=== PATIENT | male | born 1935 | race Caucasian/White ===

== ENCOUNTER 2018-08-08 12:38 | Emergency (ER) | payer OTHER, MEDICARE, BC ==
[2018-08-08] MEDS ORDERED: DIPH,PERTUS(ACELL)TETVAC-LF 0.5 ML VIAL IM ONE (12:48)
[2018-08-08] MEDS ORDERED: SODIUM CHLORIDE 0.9% 1,000 ML IV STA (12:48)
[2018-08-08 12:55] VITALS: BP 168/86; PULSE 71; RESP 18; TEMP 97
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
[2018-08-08 13:01] LABS: Glucose,Whole Blood 156 mg/dL (75-99)
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
[2018-08-08 13:16] LABS: Basophils % (A) 0 %; Eosinophils # (A) 0.2 k/uL (0-0.7); Eosinophils % (A) 2 %; HCT 45.3 % (39.0-53.0); HGB 15.3 gm/dL (13.0-17.5); Lymphocytes # (A) 1.8 k/uL (1.0-4.8); Lymphocytes % (A) 21 %; MCH 32.1 pg (25.0-35.0); MCHC 33.9 g/dL (31.0-37.0); MCV 94.6 fL (80.0-100.0); Mean Platelet Volume 7.8; Monocytes # (A) 0.4 k/uL (0-1.0); Monocytes % (A) 5 %; Neutrophils % (A) 70 %; Platelet Count 251 k/uL (150-450); RBC 4.79 m/uL (4.30-5.90); RDW 13.1 % (11.5-15.5); WBC 8.6 k/uL (3.8-10.6)
[2018-08-08 13:29] LABS: ALT 35 U/L (21-72); AST 29 U/L (17-59); Albumin 4.4 g/dL (3.5-5.0); Alcohol <10 mg/dL; Alkaline Phosphatase 82 U/L (38-126); Amylase 55 U/L (30-110); Anion Gap 9 mmol/L; Blood Urea Nitrogen 13 mg/dL (9-20); Calcium 9.7 mg/dL (8.4-10.2); Carbon Dioxide 26 mmol/L (22-30); Chloride 104 mmol/L (98-107); Glucose 158 mg/dL (74-99); Lipase 101 U/L (23-300); Potassium 4.5 mmol/L (3.5-5.1); Sodium 139 mmol/L (137-145); Total Bilirubin 0.8 mg/dL (0.2-1.3); Total Protein 7.1 g/dL (6.3-8.2)
[2018-08-08 13:42] LABS: Creatine Kinase 222 U/L (55-170)
[2018-08-08 13:55] LABS: Creatine Kinase MB 2.5 ng/mL (0.0-2.4); Troponin I <0.012 ng/mL (0.000-0.034)
[2018-08-08 13:59] LABS: Prothrombin Time 10.8 sec (9.0-12.0)
[2018-08-08 14:02] LABS: Partial Thromboplastin Time 21.2 sec (22.0-30.0)
[2018-08-08] MEDS ORDERED: LIDOCAINE 1% INJ 10MG/ML (20 ML MDV) SQ ONE (14:07)
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
[2018-08-08] MEDS ORDERED: GELATIN SPONGE,ABSORB (LARGE) 1 EACH SPONGE TOPICAL STA (15:00)
== END 2018-08-08 15:34 | disposition home or self-care (01) ==
LOC: EC 12:38
DX: S61.411A Laceration without foreign body of right hand, initial encounter (principal); S00.01XA Abrasion of scalp, initial encounter; I10 Essential (primary) hypertension; Z23 Encounter for immunization; Z86.73 Personal history of transient ischemic attack (TIA), and cerebral infarction without residual deficits; Z79.899 Other long term (current) drug therapy; Z88.0 Allergy status to penicillin; V03.99XA Pedestrian with other conveyance injured in collision with car, pick-up truck or van, unspecified whether traffic or nontraffic accident, initial encounter; Y92.410 Unspecified street and highway as the place of occurrence of the external cause
CPT/HCPCS: 36415; 86900; 86901; 80053; 82150; 82550; 82553; 83605; 83690; 84484; 85025; 85610; 85730; 86850; 80320; 72170; 73130; 71045; 72125; 70450; 71260; 74177; 90715; 99284; 12005; 90471; 96365; 96361; J0690; J2001; Q9967

== ENCOUNTER 2019-01-22 13:32 | Emergency (ER) | payer MEDICARE, BC ==
[2019-01-22 13:46] VITALS: RESP 18; TEMP 97.5
[2019-01-22] MEDS ORDERED: LIDOCAINE 1% INJ 10MG/ML (20 ML MDV) SQ STA (14:39)
--- NOTE | 2019-01-22 14:42 | ED ---
General Adult HPI - General Chief complaint: Fall Stated complaint: Fall Time Seen by Provider: 01/22/19 14:00 Source: patient, RN notes reviewed, old records reviewed Mode of arrival: ambulatory Limitations: no limitations - History of Present Illness Initial comments: 83-year-old male patient presents to ED for chief complaint of fall from ladder. Patient was reportedly on a 14 foot ladder when he was spraying a hand with WD- 40. Patient reports that the ladder slipped. Patient reports that the latter legs started to slide, he had a somewhat control descent as the latter was pressing against the wall as he slid down. Patient reports that he hit his jaw. Patient denies any loss consciousness or use of blood thinners. Patient chief complaint is pain in jaw, laceration to right ear, laceration to right wrist. Patient denies any difficulty breathing. Denies any chest pain or abdominal pain. Denies all other complaints. Patient tetanus is up-to-date. Systemic: Pt denies fatigue, fever/chills, rash. Pt denies weakness, night sweats, weight loss. Neuro: Pt denies headache, visual disturbances, syncope or pre-syncope. HEENT: Pt denies ocular discharge or irritation, otalgia, rhinorrhea, pharyngitis or notable lymphadenopathy. Cardiopulmonary: Pt denies chest pain, SOB, heart palpitations, dyspnea on exertion. Abdominal/GI: Pt denies abdominal pain, n/v/d. : Pt denies dysuria, burning w/ urination, frequency/urgency. Denies new onset urinary or bowel incontinence. MSK: Pt denies myalgia, loss of strength or function in extremities. Neuro: Pt denies new onset weakness, paresthesias. - Related Data Home Medications Medication Instructions Recorded Confirmed Unknown Blood Pressure Med 1 tab PO HS 08/08/18 08/08/18 Previous Rx's Medication Instructions Recorded Cephalexin [Keflex] 500 mg PO TID #21 cap 08/08/18 Cephalexin [Keflex] 500 mg PO Q6HR 3 Days #12 cap 01/22/19 Allergies Allergy/AdvReac Type Severity Reaction Status Date / Time Penicillins Allergy Swelling Verified 01/22/19 13:46 Review of Systems ROS Statement: Those systems with pertinent positive or pertinent negative responses have been documented in the HPI. ROS Other: All systems not noted in ROS Statement are negative. Past Medical History Past Medical History: CVA/TIA, Hypertension Additional Past Medical History / Comment(s): kidney stones gall bladder History of Any Multi-Drug Resistant Organisms: None Reported Past Surgical History: Ear Surgery Additional Past Surgical History / Comment(s): nasel surg/plastic eye cataracts Past Psychological History: No Psychological Hx Reported Smoking Status: Never smoker Past Alcohol Use History: None Reported Past Drug Use History: None Reported General Exam - General Exam Comments Initial Comments: Constitutional: NAD, AOX3, Pt has pleasant affect. HEENT: NC/AT, trachea midline, neck supple, no lymphadenopathy. Posterior pharynx non erythematous, without exudates. External ears appear normal, without discharge. Mucous membranes moist. Eyes PERRLA, EOM intact. There is no scleral icterus. No pallor noted. Cardiopulmonary: RRR, no murmurs, rubs or gallops, no JVD noted. Lungs CTAB in anterior and posterior rosales. No peripheral edema. Abdominal exam: Abdomen soft and non-distended. Abdomen non-tender to palpation in all 4 quadrants. Bowel sounds active in LLQ. No hepatosplenomegaly. No ecchymosis Neuro: CN II-XII intact. No nuchal rigidity. No raccon eyes, no ladd sign, no hemotympanum. No cervical spinal tenderness. MSK: Mild soft tissue swelling noted to right jaw. Both range of motion of jaw. 7 cm laceration to right medial wrist region there is irrigated approximate 9 simple interrupted sutures. Skin abrasion to the anterior aspect of right lower extremity vigorously irrigated. No posterior calf tenderness bilaterally, homans sign negative bilaterally. Posterior tibialis and radial pulse +2 bilaterally. Sensation intact in upper and lower extremities. Full active ROM in upper and lower extremities, 5/5 stregnth. Limitations: no limitations Course Vital Signs 01/22/19 01/22/19 01/22/19 13:40 17:00 17:30 Temperature 97.5 F L Pulse Rate 70 Respiratory 18 Rate Blood Pressure 190/96 203/111 217/108 O2 Sat by Pulse 96 Oximetry 01/22/19 17:53 Temperature Pulse Rate Respiratory Rate Blood Pressure 189/94 O2 Sat by Pulse Oximetry Procedures - Laceration Laceration #1 Consent Obtained: verbal consent Indication: laceration Site: other (right wrist medial) Size (cm): 7 Description: linear Anesthetic Used: lidocaine 1% Anesthesia Technique: local infiltration Amount (mls): 6 Pre-repair: wound explored, irrigated extensively, deep structures intact Type of Sutures: nylon Size of Sutures: 5-0 Number of Sutures: 9 Technique: simple, interrupted Patient Tolerated Procedure: well, no complications Medical Decision Making - Medical Decision Making 83-year-old male patient presents to ED for chief complaint of fall from ladder. Patient was reportedly on a 14 foot ladder when he was spraying a hand with WD- 40. Patient reports that the ladder slipped. Patient reports that the latter legs started to slide, he had a somewhat control descent as the latter was pressing against the wall as he slid down. Patient reports that he hit his jaw. Patient denies any loss consciousness or use of blood thinners. Patient chief complaint is pain in jaw, laceration to right ear, laceration to right wrist. Patient denies any difficulty breathing. Denies any chest pain or abdominal pain. Denies all other complaints. Patient tetanus is up-to-date. Patient vital signs displayed hypertension. His exam displayed a mild amount of soft tissue swelling on the right. Dry region. Full active range of motion of jaw. Laceration to right medial wrist region. Skin abrasions to anterior aspect of right lower extremity. Small abrasion to right year. No ecchymoses, no abdominal tenderness. Neurologic exam within normal limits. Cardiac pulmonary exam within normal limits. Patient laceration vigorously irrigated, approximated with 9 simple interrupted sutures. Patient administered 2 g Kefzol. We'll discharge her 3 days of prophylactic Keflex. Plain films of pelvis, wrist, chest did not display acute process. The facial bones displayed no acute facial fracture. Postsurgical changes. Chronic mucoperiosteal disease involving the ethmoid and left maxillary sinus. CT brain and C-spine displayed no acute intracranial process. Asymmetric soft tissue in the left anterior tonsil, direct relation recommended. Patient will be recommended to follow with a urinalysis and throat doctor on outpatient basis. No gross abnormality noted on exam. Patient to monitor for signs and symptoms of infection. Will follow up with primary care provider. Case discussed with Dr. Arias. Repeat vital signs patient was hypertensive. Patient was administered Vasotec. Patient is asymptomatic. Neurologic exam within normal limits. Patient was discharged, will monitor blood pressure at home. Will return to ER if condition worsens. Disposition Clinical Impression: Fall, Laceration Disposition: HOME SELF-CARE Condition: Stable Instructions (If sedation given, give patient instructions): Laceration (ED) Additional Instructions: Patient to adhere to previously discussed treatment plan and will take medication(s) as directed. Patient to follow up with PCP in 1-2 days. Patient to return to ED if symptoms do not improve. Please return for suture removal: Hand: 7-10 days Face: 5 days Chest/abdomen: 12-14 days Extremities: 7-10 days Scalp: 7 days Eyebrow: 5-7 days Foot/sole: 12-14 days Please monitor for signs and symptoms of infection including: redness, warmth, drainage, discharge. Please return to ED if these signs or symptoms occur, new signs or symptoms develop or if condition worsens in anyway. Follow-up with ENT for follow-up of tonsil evaluation. Prescriptions: Cephalexin [Keflex] 500 mg PO Q6HR 3 Days #12 cap Is patient prescribed a controlled substance at d/c from ED?: No Referrals: Adeola Solo MD [Primary Care Provider] - 1-2 days Torito Pugh DO [Doctor of Osteopathic Medicine] - 1-2 days
--- NOTE | 2019-01-22 15:31 | CT ---
EXAMINATION TYPE: CT facial bones wo con DATE OF EXAM: 01/22/2019 COMPARISON: None. HISTORY: Fall from aprox 14 feet from a ladder. CT DLP: 1238.5 mGycm Automated exposure control for dose reduction was used. TECHNIQUE: CT scan of the sinuses is performed without contrast, axial images are obtained, coronal r eformatted images are also reviewed. FINDINGS: There are mild atrophic changes within the brain. This been a previous Kasper-Russell procedure on the right. There has been resection of the nasal conch ae on the right. There is mild mucoperiosteal thickening involving the ethmoid air cells and left max illary sinus. The mastoid air cells appear clear. The zygomatic arches are intact. The pterygoid plates are intact. The morton of the orbits and maxilla ry sinuses are intact. No mandibular fracture is seen. IMPRESSION: 1. NO ACUTE FACIAL FRACTURE. 2. POSTSURGICAL CHANGE. 3. 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
--- NOTE | 2019-01-22 15:35 | CT ---
EXAMINATION TYPE: CT brain edil driscoll DATE OF EXAM: 01/22/2019 COMPARISON: HISTORY: Fall from aprox 14 feet from a ladder. CT DLP: 1238.5 mGycm Automated exposure control for dose reduction was used. TECHNIQUE: CT scan of the head and cervical spine are performed without contrast. Findings: CT brain: No acute intracranial hemorrhage, midline shift, or mass effect. No abnormal extra-axial fluid collec tions. Frontal predominant cerebral atrophy with nonspecific periventricular and subcortical white ma tter hypoattenuation, likely related to chronic microangiopathy. The ventricles are commensurate with the degree of sulcal prominence, more pronounced at the frontal horns. No findings of hydrocephalus. No calvarial fracture. Left frontal calvarial irregularity of the outer table with deficient overlyin g scalp soft tissues. Postsurgical changes of right mastoidectomy. Maxillofacial structures are repor britney separately. CT cervical spine: The cervical spine is imaged through the T3-T4 disc space. Straightening of the no rmal cervical lordosis. The vertebral bodies and facets are anatomically aligned. Vertebral body heig hts are maintained. No fracture. 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 Combination of uncovertebr al and facet spurs contribute to severe degrees of neural foraminal osseous impingement, severe at C3 -C4 bilaterally with lesser degrees present elsewhere. Bridging osteophytes present throughout the ce rvical and visualized upper thoracic spine, compatible with diffuse idiopathic skeletal hyperostosis. Visualized soft tissues demonstrate no prevertebral edema. Carotid and vertebral artery calcification s. Asymmetric soft tissues in the region of the left pontine tonsil (series 304 image 34). IMPRESSION: 1. No acute intracranial abnormality. 2. Senescent changes including cerebral volume loss (frontal predominant) and sequela of chronic micr oangiopathy. 3. No cervical spine fracture or dislocation. If there is persistent clinical concern for the presenc e of such, MRI should be considered. 4. Asymmetric soft tissue in the region of the left palatine tonsil. Direct visualization recommended . 5. Maxillofacial findings reported separately. Findings and recommendations were called to Jose Silva by Bekah Charles at 3:30 PM on 01/23/20 19.
--- NOTE | 2019-01-22 15:41 | XR ---
EXAMINATION TYPE: XR chest 2V DATE OF EXAM: 01/22/2019 HISTORY: fall ladder . REFERENCE: Previous study dated 08/08/2018. FINDINGS: There are moderate hypertrophic changes in the left AC joint. The lungs are clear. Pleural spaces are clear. The heart is not enlarged. IMPRESSION: NO ACUTE INTRATHORACIC DISEASE.
--- NOTE | 2019-01-22 15:42 | XR ---
EXAMINATION TYPE: XR wrist complete RT , 4 VIEWS DATE OF EXAM ORDERED: 01/22/2019 HISTORY: fall ladder . COMPARISON: Previous study dated 08/08/2018. FINDINGS: No fracture or dislocation is seen. There are severe degenerative changes within the finge rs, incompletely visualized. There is soft tissue swelling about the wrist. There is vascular calcifi cation present. IMPRESSION: NO DEFINITE ACUTE OSSEOUS ABNORMALITY.
--- NOTE | 2019-01-22 15:43 | XR ---
EXAMINATION TYPE: XR pelvis AP view , ONE VIEW DATE OF EXAM ORDERED: 01/22/2019 HISTORY: fall ladder . COMPARISON: None. FINDINGS: There are degenerative changes present in both hips. There is spondylosis deformans in the lower lumbar spine. Osseous structures about the pelvis are normal. No fracture is identified. There is vascular calcification in the region of the femoral arteries. IMPRESSION: 1. NO ACUTE OSSEOUS LESION. 2. DEGENERATIVE CHANGE.
[2019-01-22] MEDS ORDERED: CEPHALEXIN 500MG STARTER PACK 4 CAP BTL PO STA (16:55)
[2019-01-22] MEDS ORDERED: ENALAPRILAT 1.25 MG/ML 1 ML VIAL IVP STA (17:19)
[2019-01-22 17:53] VITALS: BP 189/94
[2019-01-22 18:15] VITALS: PULSE 68
== END 2019-01-22 18:14 | disposition home or self-care (01) ==
LOC: EC 13:32
DX: S61.511A Laceration without foreign body of right wrist, initial encounter (principal); S80.811A Abrasion, right lower leg, initial encounter; I10 Essential (primary) hypertension; Z79.899 Other long term (current) drug therapy; Z88.0 Allergy status to penicillin; Z86.73 Personal history of transient ischemic attack (TIA), and cerebral infarction without residual deficits; W11.XXXA Fall on and from ladder, initial encounter
CPT/HCPCS: 72170; 73110; 71046; 72125; 70486; 70450; 99284; 12002; 96365; 96375; J0690; J2001

== ENCOUNTER → 2021-02-12 | Outpatient (CLI) | payer MEDICARE, BC ==
--- NOTE | 2021-02-12 12:01 | CT ---
EXAMINATION TYPE: CT abdomen pelvis w con DATE OF EXAM: 02/12/2021 COMPARISON: CT August 08, 2018 HISTORY: Prostate Cancer CT DLP: 1152.20 mGycm, Automated Exposure Control for Dose Reduction was Utilized. CONTRAST: CT scan of the abdomen and pelvis is performed with oral and with IV Contrast, patient injected with 100 ml mL of Isovue 300. FINDINGS: LUNG BASES: No significant abnormality is appreciated. LIVER/GB: Dependent small calcified gallstones. PANCREAS: No significant abnormality is seen. SPLEEN: No significant abnormality is seen. ADRENALS: No significant abnormality is seen. KIDNEYS: Symmetric cortical uptake and excretion without hydronephrosis seen bilaterally. BOWEL: Oral contrast reaches level of the distal transverse colon. No suspicious small or large bowel dilatation. PROSTATE/SEMINAL VESICLES: Stable and upper limits of normal in size. LYMPH NODES: No greater than 1cm abdominal or pelvic lymph nodes are appreciated. OSSEOUS STRUCTURES: Bridging osteophytes in the thoracic spine with preservation of disc spaces consi stent with DISH. Calcified disc narrowing lumbosacral junction. Moderate multilevel anterior and late ral spurring. Moderate axial joint space loss and spurring in both hips. No suspicious focal lytic o r sclerotic osseous lesion. OTHER: Inguinal hernias bilaterally redemonstrated. On the right there is fat-containing inguinal her edwin. On the left there is probably fat-containing hernia of a portion of sigmoid colon is slightly ex tending into the hernia slightly more prominent from prior study. No abnormal dilatation to suggest o bstruction. Moderate to borderline severe calcified plaque of the aorta extends into iliac branch vessels. IMPRESSION: No suspicious mass or adenopathy to suggest metastatic disease.
--- NOTE | 2021-02-12 15:22 | NM ---
EXAMINATION TYPE: NM bone scan whole body DATE OF EXAM: 02/12/2021 COMPARISON: CT 02/12/2021, CT 01/22/2019 HISTORY: Prostate cancer, C 61 Delayed whole-body scanning was performed following the injection of 23.4 mCi Tc 99m MDP. Images acq uired 4 hours post injection. FINDINGS: Soft tissue uptake is normal. Uptake within the feet, knees, wrists and hands, shoulders, sternoclavi cular joints is likely degenerative. Uptake in the spine likely due to degenerative disc disease and facet arthropathy. Uptake in the mandible and maxilla may be due to periodontal disease, sinus diseas e. Focus of uptake in the posterior aspect of the sacroiliac joint on the right may be degenerative, the re is some hypertrophic change seen on CT however there is focal sclerosis noted within the posterior right ilium. Additionally the calvarium on the left shows some uptake likely related to calvarial de fect seen on prior CT. IMPRESSION: Probable degenerative changes, consider follow-up. Correlate for prior trauma left calvarium.
== END | disposition home or self-care (01) ==
LOC: RADNMMAIN 09:34
PROVIDERS: ATTEND Urology
DX: C61 Malignant neoplasm of prostate (principal)
CPT/HCPCS: 82565; 84520; 74177; 36415; 78306; A9503; Q9967

== ENCOUNTER → 2021-06-14 | Outpatient (CLI) | payer MEDICARE, BC | END | disposition home or self-care (01) | LOC: LABWHC1 11:30 | PROVIDERS: ATTEND Radiology Radiation Oncology | DX: C61 Malignant neoplasm of prostate (principal) | CPT/HCPCS: 36415; 84153 ==

== ENCOUNTER → 2021-07-04 | Outpatient (CLI) | payer MEDICARE, BC ==
[2021-07-04 19:03] LABS: African American GFR (CKD) 90.7 (60.0-200.0); Anion Gap 14.2 mmol/L (10.00-18.00); BUN/Creat Ratio 14.25 Ratio (12.00-20.00); Basophils # (A) 0.03 X 10*3/uL (0.00-0.10); Basophils % (A) 0.4 %; Blood Urea Nitrogen 12.8 mg/dL (9.0-27.0); Calcium 9.4 mg/dL (8.7-10.3); Carbon Dioxide 23.3 mmol/L (20.0-27.5); Eosinophils # (A) 0.16 X 10*3/uL (0.04-0.35); Eosinophils % (A) 2.3 %; HCT 46.2 % (39.6-50.0); HGB 14.8 g/dL (13.0-17.0); Immature Grans, Automated 0.3 %; Lymphocytes # (A) 1.81 X 10*3/uL (0.90-5.00); Lymphocytes % (A) 26.3 %; MCH 30.9 pg (27.0-32.0); MCV 96.5 fL (80.0-97.0); Mean Platelet Volume 10.9 fL (9.5-12.2); Monocytes # (A) 0.61 X 10*3/uL (0.20-1.00); Monocytes % (A) 8.9 %; NRBC Per 100 WBC 0 /100 WBCS (0.0-0.0); Neutrophils # (A) 4.25 X 10*3/uL (1.80-7.70); Neutrophils % (A) 61.8 %; Non-African American GFR(CKD) 78.2 (60.0-200.0); Platelet Count 245 X 10*3/uL (140-440); Potassium 4.3 mmol/L (3.5-5.5); RBC 4.79 X 10*6/uL (4.40-5.60); RDW 12.8 % (11.5-14.5); WBC 6.88 X 10*3/uL (4.50-10.00)
== END | disposition home or self-care (01) ==
LOC: LABPAT 11:17
PROVIDERS: ATTEND Urology
DX: Z01.812 Encounter for preprocedural laboratory examination (principal); C61 Malignant neoplasm of prostate
CPT/HCPCS: 80048; 85025

== ENCOUNTER → 2021-07-11 | Day surgery (SDC) | payer MEDICARE, BC ==
[2021-07-08 16:17] VITALS: BMI 26.6
--- NOTE | 2021-07-10 06:21 | P.GSHP ---
History of Present Illness H&P Date: 07/10/21 Chief Complaint: Prostate cancer The patient is an 85-year-old white male with a gradually rising PSA level. His PSA level was 15.1 in September 2020. In November 2020, he underwent a prostate ultrasound with biopsies. Prostate volume was 56 mL. 5 of 12 biopsies showed evidence of prostate cancer. The right-sided biopsies showed Chester 7/8 adenocarcinoma. Metastatic evaluation was negative. He has elected to be treated with IMRT and androgen deprivation therapy. He now comes for SpaceOAR implant to reduce the likelihood of radiation induced rectal toxicity. - Constitutional Constitutional: Denies weight gain, Denies weight loss - Gastrointestinal Gastrointestinal: Denies constipation, Denies diarrhea - Genitourinary (Male) Genitourinary: Denies nocturia Past Medical History Past Medical History: CVA/TIA, Hypertension, Prostate Disorder Additional Past Medical History / Comment(s): prostate Ca,hx kidney stones,blood clot behind left eye,fx back History of Any Multi-Drug Resistant Organisms: None Reported Past Surgical History: Back Surgery, Ear Surgery Additional Past Surgical History / Comment(s): nasel surg/plastic,eye cataracts,2 rods w/ screws inserted to back Past Anesthesia/Blood Transfusion Reactions: No Reported Reaction Smoking Status: Current every day smoker - Past Family History Mother Family Medical History: No Reported History Father Family Medical History: Cancer Additional Family Medical History / Comment(s): prostate Medications and Allergies Home Medications Medication Instructions Recorded Confirmed Type Aspirin EC [Ecotrin Low Dose] 81 mg PO HS 04/09/21 07/08/21 History Brinzolamide/Brimonidine Tart 1 drop RIGHT EYE BID 04/09/21 07/08/21 History [Simbrinza 1%-0.2% Eye Drops] Latanoprost [Xalatan 0.005%] 1 drop BOTH EYES HS 04/09/21 07/08/21 History lisinopriL [Zestril] 10 mg PO HS 04/09/21 07/08/21 History Magnesium Hydroxide [Milk of 2,400 mg PO DAILY PRN ml 04/15/21 07/08/21 Rx Magnesia Concentrate] Multivitamins, Thera [Multivitamin 1 each PO DAILY@1200 #30 tab 04/15/21 07/08/21 Rx (formulary)] Thiamine [Vitamin B-1] 100 mg PO DAILY@1200 #30 tab 04/15/21 07/08/21 Rx Allergies Allergy/AdvReac Type Severity Reaction Status Date / Time Penicillins Allergy Swelling Verified 07/08/21 16:04 Surgical - Exam - General well developed, well nourished, no distress - Respiratory normal respiratory effort - Rectum Rectum: normal sphincter tone, no masses, other (Prostate enlarged, irregular on right) - Psychiatric oriented to time, oriented to person, oriented to place, speech is normal, memory intact Results - Imaging CT scan - pelvis: report reviewed Assessment and Plan (1) Malignant neoplasm of prostate Status: Acute Code(s): C61 - MALIGNANT NEOPLASM OF PROSTATE SNOMED Code(s): 345044734 Plan: The SpaceOar implant has been reviewed in detail with the patient. He understands that the rationale for this is to create separation between the prostate and rectum, thus reducing the risk of radiation proctitis. The material begins to breakdown 12-13 weeks following implant, and is reabsorbed by the body. Risks include anesthesia, bleeding, infection, and perineal discomfort. He understands that if the rectal wall is perforated the procedure will need to be aborted.
[~2021-07-11] MED LIST: GENTAMICIN 120 MG in SODIUM CHLORIDE 0.9% 100 ML IVPB PRN; HYDROmorphone 0.5 MG/0.5 ML SYRINGE IVP PRN; LACTATED RINGERS 1,000 ML IV ONE; LACTATED RINGERS 1,000 ML IV SCH; LIDOCAINE 1% INJ 10MG/ML (20 ML MDV) ONE; LIDOCAINE 2% INJ 20 MG/ML SQ ONE; MIDAZOLAM 2 MG/2 ML VIAL ONE; ONDANSETRON 4 MG/2 ML VIAL IVP ONE; ONDANSETRON 4 MG/2 ML VIAL ONE; PROPOFOL 10 MG/ML 20 ML VIAL IV ONE; fentaNYL (PF) 50 MCG/ML 2 ML AMP ONE
[2021-07-11 07:12] VITALS: TEMP 98.1
--- NOTE | 2021-07-11 08:26 | P.OP ---
Date of Procedure: 07/11/21 Preoperative Diagnosis: Adenocarcinoma of the prostate Postoperative Diagnosis: Same Procedure(s) Performed: SpaceOAR Implant Anesthesia: MAC Surgeon: Britton Castro Estimated Blood Loss (ml): 5 IV fluids (ml): 200 Pathology: none sent Condition: stable Disposition: PACU Indications for Procedure: The patient is an 85-year-old white male with a gradually rising PSA level. His PSA level was 15.1 in September 2020. In November 2020, he underwent a prostate ult rasound with biopsies. Prostate volume was 56 mL. 5 of 12 biopsies showed evidence of prostate cancer. The right-sided biopsies showed Gary 7/8 adenocarcinoma. Metastatic evaluation was negative. He has elected to be treated with IMRT and androgen deprivation therapy. He now comes for SpaceOAR implant to reduce the likelihood of radiation induced rectal toxicity. Operative Findings: Excellent separation created between prostate and rectum. Description of Procedure: The patient was taken to the operating room and placed in the dorsolithotomy position, with his legs supported in Wayne stirrups. The external genitalia was prepped and draped sterilely. The Bruel and Kjaer transrectal ultrasound probe was placed intrarectally. The prostate was imaged. The probe was then placed within the stabilizing stand. A spinal needle was advanced under ultrasonic guidance to the level of the urogenital diaphragm, and lidocaine was used to infiltrate the tissues as the needle was withdrawn. Next, the SpaceOAR needle was passed through the midline of the perineum, 1-2 cm anterior to the anal opening. The needle was slowly advanced under ultrasonic guidance until the needle tip was located within the fat plane between the prostate and rectum, at the level of the mid prostate gland. The needle was confirmed to be midline on the axial imaging. A small amount of normal saline was injected for hydrodissection. Next, the SpaceOAR components were mixed and loaded into the Y connector per protocol. The Y connector was then connected to the needle, and the components were injected slowly over a course of approximately 12 seconds. A total of 10 ml was injected. Significant distance was created between the prostate and rectum, as desired. It should be noted that at no point was there any concern of rectal perforation. The needle was withdrawn, as well as the transrectal ultrasound probe, and the procedure was terminated. The patient tolerated the procedure well and was taken to the recovery room in stable condition.
[2021-07-11 08:31] VITALS: BP 138/80; PULSE 59; RESP 16
== END | disposition home or self-care (01) ==
LOC: OR 06:41
PROVIDERS: ATTEND Urology
DX: C61 Malignant neoplasm of prostate (principal); I10 Essential (primary) hypertension; Z86.73 Personal history of transient ischemic attack (TIA), and cerebral infarction without residual deficits; Z87.442 Personal history of urinary calculi; Z98.49 Cataract extraction status, unspecified eye; Z98.890 Other specified postprocedural states; F17.200 Nicotine dependence, unspecified, uncomplicated; Z79.899 Other long term (current) drug therapy; Z88.0 Allergy status to penicillin
CPT/HCPCS: 55874; C1889; J2001 ×2; J2250; J2405; J3010; J1580; J2704

== ENCOUNTER → 2021-08-05 | Outpatient (CLI) | payer MEDICARE, BC ==
[2021-08-05 20:04] LABS: Appearance,Urine Clear (Clear); Bilirubin,Urine Negative (Negative); Blood,Urine Negative (Negative); Color,Urine Light Yellow; Glucose,Urine (UA) Negative (Negative); Ketones,Urine Negative (Negative); Leukocyte Esterase,Urine Negative (Negative); Nitrite,Urine Negative (Negative); Protein,Urine Negative (Negative); Specific Gravity,Urine 1.005 (1.001-1.035); Urobilinogen,Urine <2.0 mg/dL (<2.0)
== END | disposition home or self-care (01) ==
LOC: LABWHC1 09:50
PROVIDERS: ATTEND Radiology Radiation Oncology
DX: C61 Malignant neoplasm of prostate (principal); F17.210 Nicotine dependence, cigarettes, uncomplicated
CPT/HCPCS: 81003

== ENCOUNTER → 2021-11-07 | Outpatient (CLI) | payer MEDICARE, BC | END | disposition home or self-care (01) | LOC: LABWHC1 08:43 | PROVIDERS: ATTEND Radiology Radiation Oncology | DX: C61 Malignant neoplasm of prostate (principal); F17.210 Nicotine dependence, cigarettes, uncomplicated | CPT/HCPCS: 36415; 84153 ==